=== PATIENT | male | born 1990 | race Caucasian/White ===

== ENCOUNTER 2016-11-20 19:29 | Emergency (ER) | payer OTHER ==
[~2016-11-20] VITALS: Ht 185.4 cm; Wt 96.5 kg
[~2016-11-20 19:29] MED LIST: FLEXERIL5 MG PO; KEFLEX500 MG PO; MOTRIN600 MG PO
[2016-11-20 21:05] LABS: HEMATOCRIT 48.1 % (38.0-50.0); MCH 30.5 PG (29.0-34.0); MCHC 35.3 G/DL (30.0-36.0); MCV 86.4 FL (86-99); MEAN PLAT.VOLUME 11.2 uM^3 (9.0-12.4); PLATELET COUNT 212 K/uL (156-360); RBC DIS.WIDTH-SD 40.2 % (39-53); RED BLOOD COUNT 5.57 M/uL (4.00-5.50); WHITE BLOOD COUNT 13.3 K/uL (4.1-10.2)
[2016-11-20 21:13] LABS: CHLORIDE 106 mEq/L (99-109); POTASSIUM 3.9 mEq/L (3.7-5.4); SODIUM 141 mEq/L (136-147)
[2016-11-20 21:14] LABS: GLUCOSE 71 mg/dL (70-99)
[2016-11-20 21:16] LABS: ANION GAP 10 MEQ/L (2-14)
[2016-11-20 21:18] LABS: GFR ESTIMATE (CALCULATED) > 59 mL/min/
[2016-11-20 21:19] LABS: UREA NITROGEN (BUN) 15 mg/dL (9-23)
[2016-11-20 22:03] LABS: ADD MIUA? YES; BILIRUBIN NEGATIVE; BLOOD LARGE; COLOR YELLOW ((YELLOW)); GLUCOSE (STRIP) NEGATIVE; KETONES NEGATIVE; LEUKOCYTES NEGATIVE; NITRITE NEGATIVE; PROTEIN (STRIP) NEGATIVE; SPECIFIC GRAVITY 1.029 (1.000-1.030); UROBILINOGEN 0.2 MG/DL (0.2-1.0)
[2016-11-20 22:04] LABS: WHITE BLOOD CELLS 0-5 /HPF (0-5)
[2016-11-20 22:05] LABS: BACTERIA RARE /HPF; CASTS PRESENT /LPF; EPITHELIAL CELLS NONE SEEN /HPF; MUCUS 2+ /LPF; UCUL ADDED? NO
[2016-11-20 22:06] LABS: HYALINE CASTS 0-5 /LPF
[2016-11-20] MEDS ORDERED: NAPROSYN500 MG PO (22:13)
[2016-11-20] MEDS ORDERED: PERCOCET 5/31 TABLET PO (22:13)
[2016-11-20 22:40] VITALS: BP 128/87
== END 2016-11-20 22:40 | disposition home or self-care (01) ==
LOC: EME 19:29
DX: R10.9 Unspecified abdominal pain (principal); R31.9 Hematuria, unspecified; N20.0 Calculus of kidney; R35.0 Frequency of micturition; R30.0 Dysuria; R39.15 Urgency of urination; Z87.442 Personal history of urinary calculi; F17.200 Nicotine dependence, unspecified, uncomplicated
CPT/HCPCS: 74176; 80048; 81003; 85027; 99281; 99284; J1885